=== PATIENT | male | born 1950 | race Caucasian/White ===

== ENCOUNTER 2017-11-19 13:24 | Outpatient (CLI) | payer BC ==
--- NOTE | 2017-11-19 15:06 | RAD ---
LUMBAR SPINE: Date: 11/19/17 AP and lateral views were obtained standing. INDICATION: Low back pain. History of compression fracture. Sprain of ligaments of lumbar spine given as indicati on. No comparison studies. FINDINGS: There is a compression deformity involving the L4 vertebra. There is superior end plate compression w ith loss of central height estimated at 25%. Mild loss of anterior height as well. Posterior height i s maintained. Posterior alignment is maintained. Mild disc narrowing at L5-S1. The other disc spaces are preserved. Mild degenerative osteophytes. Mild facet hypertrophy at L4-5 and L5-S1. No evidence o f spondylolisthesis. IMPRESSION: Compression deformity at L4 as described. POS: [facility]
== END 2017-11-19 13:25 | disposition home or self-care (01) ==
LOC: TBSIIMAG 13:24
PROVIDERS: ATTEND Surgery
DX: S33.5XXA Sprain of ligaments of lumbar spine, initial encounter (principal); M54.5 Low back pain
CPT/HCPCS: 72100